=== PATIENT | female | born 1975 | race Caucasian/White ===

== ENCOUNTER 2024-04-28 09:22 | Day surgery (SDC) | payer OTHER ==
[2024-04-27 10:44] VITALS: BMI 25.8
[2024-04-28] MEDS ORDERED: Ondansetron PF 4 MG/2 ML Vial ONE (11:25)
[2024-04-28] MEDS ORDERED: Lidocaine 2% MPF 10 ML AMP (For Epidural Use) ONE (11:25)
[2024-04-28] MEDS ORDERED: PROPOFOL 60 ML ONE (11:25)
== END 2024-04-28 12:20 | disposition home or self-care (01) ==
LOC: CSHSDC 09:22
PROVIDERS: ATTEND Surgery
PROC: 0DJD8ZZ Inspection of Lower Intestinal Tract, Via Natural or Artificial Opening Endoscopic (ICD-10-PCS; principal; 2024-04-28)
DX: Z12.11 Encounter for screening for malignant neoplasm of colon (principal); E78.5 Hyperlipidemia, unspecified; F32.A Depression, unspecified; J45.909 Unspecified asthma, uncomplicated; Z79.899 Other long term (current) drug therapy; Z90.49 Acquired absence of other specified parts of digestive tract
CPT/HCPCS: J2405; J2704